=== PATIENT | female | born 1945 | race Caucasian/White ===

== ENCOUNTER → 2016-08-25 | Outpatient (CLI) | payer MEDICARE, BC ==
[~2016-08-25] MED LIST: ESTRADIOL1 MG PO; FISH OIL1 IU PO; LEVOTHYROXIN0.125 MG PO; LOVASTATIN10 MG PO; MULTIPLE VITAMI1 CAP PO; NAPROSYN500 MG PO
== END ==
LOC: MC.RAD 08:00
DX: Z12.31 Encounter for screening mammogram for malignant neoplasm of breast (principal)

== ENCOUNTER 2017-07-25 09:38 | Emergency (ER) | payer MEDICARE, BC ==
[~2017-07-25] VITALS: Ht 165.1 cm; Wt 71.8 kg
[2017-07-25 09:43] VITALS: BP 167/78; TEMP 98.1
[2017-07-25 11:19] VITALS: PULSE 78
== END 2017-07-25 11:19 | disposition home or self-care (01) ==
LOC: COL.ER 09:38
DX: S46.002A Unspecified injury of muscle(s) and tendon(s) of the rotator cuff of left shoulder, initial encounter (principal); E03.9 Hypothyroidism, unspecified; X50.0XXA Overexertion from strenuous movement or load, initial encounter; Y92.009 Unspecified place in unspecified non-institutional (private) residence as the place of occurrence of the external cause

== ENCOUNTER 2018-01-03 15:58 | Emergency (ER) | payer MEDICARE, BC ==
[~2018-01-03] VITALS: Ht 162.6 cm; Wt 67.3 kg
[~2018-01-03 15:58] MED LIST changes: -LEVOTHYROXIN0.125 MG PO; +SYNTHROID0.075 MG/T PO
[2018-01-03 16:06] VITALS: TEMP 101.1
[2018-01-03 17:47] LABS: BASO % 0.5 % (0.0-2.0); GRAN # 2.4 (1.4-6.5); GRAN % 63.3 % (42.2-75.2); HEMATOCRIT 41.5 % (37.0-47.0); HEMOGLOBIN 13.7 g/dl (12.5-16.0); LYMPH # 0.9 (1.2-3.4); LYMPH % 23.9 % (20.0-51.0); MEAN CELL VOLUME 93 fl (80.0-100.0); MEAN CORPUSCULAR HEMOGLOBIN 31 pg (27.0-31.0); MEAN CORPUSCULAR HGB CONC 33 g/dl (33.0-37.0); MONO # 0.5 (0.1-0.6); MONO % 12.3 % (1.7-9.3); PLATELET COUNT 106 K/mm3 (130-400); RED BLOOD COUNT 4.46 M/mm3 (4.10-5.30); REDCELL DISTRIBUTION WIDTH-CV 12.6 % (11.5-14.5)
[2018-01-03 17:50] LABS: ALBUMIN 3.5 gm/dL (3.5-5.0); BILIRUBIN,TOTAL 0.8 mg/dL (0.0-1.0); CALCIUM 8.6 mg/dL (8.4-10.2); CREATININE, serum 0.91 mg/dL (0.52-1.25); POTASSIUM 4.1 mmol/L (3.4-5.0); TOTAL PROTEIN 6.4 gm/dL (6.4-8.2)
[2018-01-03 18:39] LABS: COLLECTION METHOD CLEAN CATCH
[2018-01-03 18:48] LABS: MUCOUS Present /lpf; PH 5 (5-8); SQUAMOUS EPITHELIAL 0-2 /hpf; URINE APPEARANCE Hazy; URINE BACTERIA None Seen /hpf; URINE BILIRUBIN Negative (NEGATIVE); URINE BLOOD 1+ (NEGATIVE); URINE COLOR Yellow; URINE GLUCOSE Negative (NEGATIVE); URINE KETONE 1+ (NEGATIVE); URINE LEUKOCYTE ESTERASE 3+ (NEGATIVE); URINE NITRATE Negative (NEGATIVE); URINE PROTEIN(semi-quant) 1+ (NEGATIVE)
[2018-01-03] MEDS ORDERED: OMNICEF 300MG300 MG PO (19:09)
[2018-01-03] MEDS ORDERED: ZOFRAN ODT4 MG PO (19:09)
[2018-01-03 19:16] VITALS: BP 120/84; PULSE 96
[2018-01-04] MEDS ORDERED: CALCIUM 600MG+D1 TAB PO (17:15)
[2018-01-04] MEDS ORDERED: ESTRACE 1MG1 MG/TAB PO (17:20)
[2018-01-04] MEDS ORDERED: PROBIOTIC FORMU1 CAP PO (17:21)
[2018-01-04] MEDS ORDERED: ASPIRIN E.C. 8181 MG PO (17:26)
[2018-01-04] MEDS ORDERED: MAGNESIUM250 M1 PO (17:26)
== END 2018-01-03 19:25 | disposition home or self-care (01) ==
LOC: COL.ER 15:58
PROVIDERS: Emergency Medicine
DX: N39.0 Urinary tract infection, site not specified (principal); E03.9 Hypothyroidism, unspecified; E78.5 Hyperlipidemia, unspecified; Z90.710 Acquired absence of both cervix and uterus; Z90.89 Acquired absence of other organs
CPT/HCPCS: J2405; J7030

== ENCOUNTER 2018-01-04 13:08 | Inpatient (IN) | payer MEDICARE, BC ==
[~2018-01-04] VITALS: Ht 162.6 cm; Wt 67.0 kg
[2018-01-04] VITALS (144 sets, daily range): BP systolic 130–149; BP diastolic 65–68; PULSE 104–105; TEMP 100.8–101; O2SAT 71–98
[~2018-01-04 13:08] MED LIST changes: +OMNICEF 300MG300 MG PO; +ZOFRAN ODT4 MG PO
[2018-01-04 13:41] LABS: HEMOGLOBIN 13.6 g/dl (12.5-16.0); MEAN CELL VOLUME 89 fl (80.0-100.0); MEAN CORPUSCULAR HEMOGLOBIN 30 pg (27.0-31.0); MEAN CORPUSCULAR HGB CONC 34 g/dl (33.0-37.0); MEAN PLATELET VOLUME 10.9 fl (7.4-10.4); PLATELET COUNT 80 K/mm3 (130-400); RED BLOOD COUNT 4.49 M/mm3 (4.10-5.30); REDCELL DISTRIBUTION WIDTH-CV 12.5 % (11.5-14.5)
[2018-01-04 14:01] LABS: BAND 27 % (0-10); LYMPHOCYTE 23 % (20.0-51.0); NEUTROPHILS 47 % (42.0-75.2)
[2018-01-04 14:02] LABS: PLATELET ESTIMATE NORMAL (NORMAL)
[2018-01-04 14:16] LABS: ALBUMIN 3.1 gm/dL (3.5-5.0); CALCIUM 8.1 mg/dL (8.4-10.2); CREATININE, serum 0.89 mg/dL (0.52-1.25); POTASSIUM 3.6 mmol/L (3.4-5.0); TOTAL PROTEIN 5.7 gm/dL (6.4-8.2)
[2018-01-04] MEDS ORDERED: CALCIUM 600MG+D1 TAB PO (17:15)
[2018-01-04] MEDS ORDERED: ESTRACE 1MG1 MG/TAB PO (17:20)
[2018-01-04] MEDS ORDERED: PROBIOTIC FORMU1 CAP PO (17:21)
[2018-01-04] MEDS ORDERED: ASPIRIN E.C. 8181 MG PO (17:26)
[2018-01-04] MEDS ORDERED: MAGNESIUM250 M1 PO (17:26)
[2018-01-05] VITALS (591 sets, daily range): BP systolic 98–130; BP diastolic 38–65; PULSE 18–105; TEMP 98.2–102; O2SAT 79–100
[2018-01-05 05:59] LABS: MEAN CELL VOLUME 90 fl (80.0-100.0); MEAN CORPUSCULAR HGB CONC 33 g/dl (33.0-37.0); MEAN PLATELET VOLUME 10.7 fl (7.4-10.4); PLATELET COUNT 68 K/mm3 (130-400); RED BLOOD COUNT 3.72 M/mm3 (4.10-5.30); REDCELL DISTRIBUTION WIDTH-CV 12.6 % (11.5-14.5)
[2018-01-05 06:02] LABS: HEMATOCRIT 33.6 % (37.0-47.0); HEMOGLOBIN 11.2 g/dl (12.5-16.0); MEAN CORPUSCULAR HEMOGLOBIN 30 pg (27.0-31.0)
[2018-01-05 06:12] LABS: ALBUMIN 2.5 gm/dL (3.5-5.0); BILIRUBIN UNCONJUGATED 0.2 mg/dL (0.0-1.1); BILIRUBIN,DIRECT 0.4 mg/dL (0.0-0.4); BILIRUBIN,TOTAL 0.6 mg/dL (0.0-1.0); CALCIUM 7.4 mg/dL (8.4-10.2); CREATININE, serum 0.86 mg/dL (0.52-1.25); TOTAL PROTEIN 4.9 gm/dL (6.4-8.2)
[2018-01-05 06:41] LABS: POTASSIUM 2.9 mmol/L (3.4-5.0)
[2018-01-05 06:42] LABS: BAND 37 % (0-10); LYMPHOCYTE 25 % (20.0-51.0); NEUTROPHILS 33 % (42.0-75.2); PLATELET ESTIMATE DECREASED (NORMAL); POLYCHROMASIA 1+
[2018-01-06] VITALS (7 sets, daily range): BP systolic 100–120; BP diastolic 42–65; PULSE 52–96; TEMP 97.9–100.3
[2018-01-06 23:26] LABS: FOLATE (FOLIC ACID) 10.4 ng/mL (7.0-31.4)
[2018-01-07 03:41] VITALS: BP 119/58; PULSE 91; TEMP 99.7
[2018-01-07 07:22] VITALS: BP 116/53; PULSE 93; TEMP 98.7
[2018-01-07 07:39] LABS: HEMOGLOBIN 11.2 g/dl (12.5-16.0); MEAN CELL VOLUME 89 fl (80.0-100.0); MEAN CORPUSCULAR HEMOGLOBIN 30 pg (27.0-31.0); MEAN CORPUSCULAR HGB CONC 34 g/dl (33.0-37.0); MEAN PLATELET VOLUME 11.6 fl (7.4-10.4); PLATELET COUNT 78 K/mm3 (130-400); RED BLOOD COUNT 3.76 M/mm3 (4.10-5.30); REDCELL DISTRIBUTION WIDTH-CV 12.8 % (11.5-14.5)
[2018-01-07 07:47] LABS: HEMATOCRIT 33.3 % (37.0-47.0)
[2018-01-07 07:52] LABS: CALCIUM 7.6 mg/dL (8.4-10.2); CREATININE, serum 0.6 mg/dL (0.52-1.25); POTASSIUM 3.1 mmol/L (3.4-5.0)
[2018-01-07 09:37] LABS: BAND 8 % (0-10); LYMPHOCYTE 61 % (20.0-51.0); NEUTROPHILS 24 % (42.0-75.2); PLATELET ESTIMATE DECREASED (NORMAL)
[2018-01-07 11:12] VITALS: BP 121/62; PULSE 95; TEMP 97.9
[2018-01-07 15:58] VITALS: BP 120/60; PULSE 97; TEMP 98.3
[2018-01-07 20:18] VITALS: BP 119/54; PULSE 95; TEMP 99
[2018-01-08 00:03] VITALS: BP 124/60; PULSE 90; TEMP 98.9
[2018-01-08 04:00] VITALS: BP 120/51; PULSE 93; TEMP 98.1
[2018-01-08 07:25] VITALS: PULSE 87; TEMP 98.9
[2018-01-08 07:54] LABS: HEMOGLOBIN 11.5 g/dl (12.5-16.0); MEAN CELL VOLUME 90 fl (80.0-100.0); MEAN CORPUSCULAR HEMOGLOBIN 30 pg (27.0-31.0); MEAN CORPUSCULAR HGB CONC 34 g/dl (33.0-37.0); MEAN PLATELET VOLUME 11.5 fl (7.4-10.4); PLATELET COUNT 90 K/mm3 (130-400); RED BLOOD COUNT 3.81 M/mm3 (4.10-5.30); REDCELL DISTRIBUTION WIDTH-CV 12.9 % (11.5-14.5)
[2018-01-08 08:00] LABS: HEMATOCRIT 34.2 % (37.0-47.0)
[2018-01-08 08:04] LABS: CALCIUM 7.8 mg/dL (8.4-10.2); CREATININE, serum 0.59 mg/dL (0.52-1.25); POTASSIUM 3.1 mmol/L (3.4-5.0)
[2018-01-08 08:32] LABS: BAND 8 % (0-10); EOSINOPHIL 1 % (0-4); LYMPHOCYTE 65 % (20.0-51.0); NEUTROPHILS 20 % (42.0-75.2); PLATELET ESTIMATE DECREASED (NORMAL)
[2018-01-08 11:41] VITALS: BP 108/53; PULSE 102; TEMP 97.1
[2018-01-08 15:45] VITALS: BP 123/57; PULSE 92; TEMP 98.4
[2018-01-08 20:00] VITALS: BP 121/58; PULSE 109; TEMP 99.1
[2018-01-09] VITALS: BP 109/53; PULSE 100; TEMP 99.6
[2018-01-09 04:00] VITALS: BP 113/48; PULSE 105; TEMP 100.2
[2018-01-09 06:36] LABS: HEMOGLOBIN 11.8 g/dl (12.5-16.0); MEAN CELL VOLUME 91 fl (80.0-100.0); MEAN CORPUSCULAR HEMOGLOBIN 31 pg (27.0-31.0); MEAN CORPUSCULAR HGB CONC 34 g/dl (33.0-37.0); MEAN PLATELET VOLUME 11.1 fl (7.4-10.4); PLATELET COUNT 121 K/mm3 (130-400); RED BLOOD COUNT 3.87 M/mm3 (4.10-5.30)
[2018-01-09 06:46] LABS: HEMATOCRIT 35.2 % (37.0-47.0)
[2018-01-09 06:53] LABS: CALCIUM 7.8 mg/dL (8.4-10.2); CREATININE, serum 0.59 mg/dL (0.52-1.25); MAGNESIUM 1.7 mg/dL (1.6-2.3); POTASSIUM 3.6 mmol/L (3.4-5.0)
[2018-01-09 07:51] VITALS: BP 126/57; PULSE 100; TEMP 99
[2018-01-09 08:02] LABS: BAND 8 % (0-10); BASOPHIL 1 % (0-2); LYMPHOCYTE 73 % (20.0-51.0); NEUTROPHILS 16 % (42.0-75.2); PLATELET ESTIMATE DECREASED (NORMAL)
[2018-01-09 11:34] VITALS: BP 111/54; PULSE 88; TEMP 98.7
[2018-01-09 15:34] VITALS: BP 116/54; PULSE 98; TEMP 99.4
[2018-01-09 19:34] VITALS: BP 109/50; PULSE 98; TEMP 98.2
[2018-01-10 05:05] VITALS: BP 104/55; PULSE 96; TEMP 98.4
[2018-01-10 08:07] VITALS: BP 125/61; PULSE 101; TEMP 98.2
[2018-01-10 08:58] LABS: HEMATOCRIT 38.8 % (37.0-47.0); HEMOGLOBIN 12.6 g/dl (12.5-16.0); MEAN CELL VOLUME 93 fl (80.0-100.0); MEAN CORPUSCULAR HEMOGLOBIN 30 pg (27.0-31.0); MEAN CORPUSCULAR HGB CONC 33 g/dl (33.0-37.0); MEAN PLATELET VOLUME 10.7 fl (7.4-10.4); PLATELET COUNT 187 K/mm3 (130-400); RED BLOOD COUNT 4.19 M/mm3 (4.10-5.30); REDCELL DISTRIBUTION WIDTH-CV 13.3 % (11.5-14.5)
[2018-01-10 09:05] LABS: CREATININE, serum 0.66 mg/dL (0.52-1.25); POTASSIUM 3.8 mmol/L (3.4-5.0)
[2018-01-10 09:44] LABS: BAND 3 % (0-10); NEUTROPHILS 14 % (42.0-75.2)
[2018-01-10 09:45] LABS: LYMPHOCYTE 80 % (20.0-51.0)
[2018-01-10 09:46] LABS: PLATELET ESTIMATE NORMAL (NORMAL)
[2018-01-10 12:26] VITALS: BP 118/39; PULSE 100; TEMP 98.2
[2018-01-10] MEDS ORDERED: CEFTIN500 MG PO (13:09)
== END 2018-01-10 15:29 | disposition home or self-care (01) | DRG 690 ==
LOC: COL.ER 13:08 → ICU 16:15 → SURG 01-05 18:15
PROVIDERS: Emergency Medicine; Family Medicine; Hospitalist; Nurse Practitioner Family; Physician Assistant
DX: N39.0 Urinary tract infection, site not specified (principal); E87.6 Hypokalemia; D69.6 Thrombocytopenia, unspecified; D70.9 Neutropenia, unspecified
CPT/HCPCS: 99222-AI; 99232-AI; 99233-AI; 99238; A9284; J0696; J1650; J2405; J3475; J3480; J7030

== ENCOUNTER → 2018-01-12 | Outpatient (CLI) | payer MEDICARE, BC ==
[~2018-01-12] MED LIST changes: +ASPIRIN E.C. 8181 MG PO; +CALCIUM 600MG+D1 TAB PO; +CEFTIN500 MG PO; +ESTRACE 1MG1 MG/TAB PO; +MAGNESIUM250 M1 PO; +PROBIOTIC FORMU1 CAP PO
== END ==
LOC: COL.RAD 13:44
DX: R74.8 Abnormal levels of other serum enzymes (principal); J90 Pleural effusion, not elsewhere classified; D72.829 Elevated white blood cell count, unspecified
CPT/HCPCS: Q9967

== ENCOUNTER → 2018-01-20 | Outpatient (REF) | LOC: ZLAB.WCH 14:16 | DX: Z01.89 Encounter for other specified special examinations (principal) ==

== ENCOUNTER → 2018-12-01 | Outpatient (CLI) | payer MEDICARE, BC | LOC: MC.RAD 09:40 | DX: Z12.31 Encounter for screening mammogram for malignant neoplasm of breast (principal) ==

== ENCOUNTER → 2020-06-04 | Outpatient (CLI) | payer MEDICARE, BC | LOC: MC.RAD 05-21 15:30 | DX: Z12.31 Encounter for screening mammogram for malignant neoplasm of breast (principal) ==

== ENCOUNTER → 2021-07-21 | Outpatient (CLI) | payer MEDICARE, BC | LOC: MC.RAD 13:00 | DX: Z12.31 Encounter for screening mammogram for malignant neoplasm of breast (principal) ==